=== PATIENT | male | born 2000 | race Caucasian/White ===

== ENCOUNTER 2023-10-12 11:08 | Emergency (ER) | payer BC, MEDICAID ==
[2023-10-12 12:59] LABS: SARS-CoV-2 NAA Rapid Test Not Detected (NotDetected)
== END 2023-10-12 18:10 | disposition home or self-care (01) ==
LOC: CSHERS 11:08
DX: J06.9 Acute upper respiratory infection, unspecified (principal)
CPT/HCPCS: 87081; 87430; 99283

== ENCOUNTER 2024-03-01 12:26 | Emergency (ER) | payer BC, MEDICAID | END 2024-03-01 12:45 | disposition home or self-care (01) | LOC: CSHERS 12:26 | DX: S93.401A Sprain of unspecified ligament of right ankle, initial encounter (principal); X50.1XXA Overexertion from prolonged static or awkward postures, initial encounter | CPT/HCPCS: 99283 ==